=== PATIENT | female | born 1980 | race Caucasian/White ===

== ENCOUNTER 2016-10-10 18:52 | Emergency (ER) | payer SELFPAY ==
[2016-10-10 20:05] LABS: Anion Gap 15 mmol/L (10-20); BUN (Urea Nitrogen) 10 mg/dL (7.0-18.7); Calc. Creatinine Clearance 0 mL/min (70-130); Calcium 9.4 mg/dL (7.8-10.44); Carbon Dioxide 21 mmol/L (22-29); Chloride 104 mmol/L (98-107); Estimated GFR-MDRD Greater than 90; Glucose 98 mg/dL (70-105); Potassium 3.9 mmol/L (3.5-5.1); Sodium 136 mmol/L (136-145)
--- NOTE | 2016-10-10 21:12 | RAD ---
THREE VIEWS RIGHT WRIST 10/10/16 COMPARISON: None. HISTORY: Right hand pain, wrist pain, no history of trauma. FINDINGS: There is no widening of the scapholunate interval. No displaced fracture or evidence of dislocation is seen. IMPRESSION: No acute osseous abnormality. POS: [facility]
== END 2016-10-10 20:25 | disposition home or self-care (01) ==
LOC: NAV ERS 18:52
DX: S63.501A Unspecified sprain of right wrist, initial encounter (principal); M77.9 Enthesopathy, unspecified; I87.2 Venous insufficiency (chronic) (peripheral); K03.81 Cracked tooth; K02.9 Dental caries, unspecified; F41.9 Anxiety disorder, unspecified; F17.210 Nicotine dependence, cigarettes, uncomplicated; X50.3XXA Overexertion from repetitive movements, initial encounter; Y93.E9 Activity, other interior property and clothing maintenance
CPT/HCPCS: 80048; 85379

== ENCOUNTER 2024-11-05 11:34 | Emergency (ER) | payer OTHER, SELFPAY ==
[2024-11-05] MEDS ORDERED: Boostrix 0.5 ML (Tdap) VIAL (>/=7 yrs of age) ONE (12:10)
[2024-11-05] MEDS ORDERED: Ibuprofen 800 MG TAB ONE (12:10)
== END 2024-11-05 13:15 | disposition home or self-care (01) ==
LOC: NAV ERS 11:34
DX: S42.252A Displaced fracture of greater tuberosity of left humerus, initial encounter for closed fracture (principal); S80.11XA Contusion of right lower leg, initial encounter; S80.212A Abrasion, left knee, initial encounter; S80.211A Abrasion, right knee, initial encounter; F17.210 Nicotine dependence, cigarettes, uncomplicated; Z23 Encounter for immunization; W20.8XXA Other cause of strike by thrown, projected or falling object, initial encounter
CPT/HCPCS: 90471; 90715